=== PATIENT | male | born 1990 | race Two or more races ===

== ENCOUNTER → 2024-11-02 | Emergency (ER) | payer OTHER ==
[~2024-11-02] VITALS: Ht 193 cm; Wt 104.8 kg
[~2024-11-02] MED LIST: 0.9 % SODIUM CHLORIDE 1,000 ML IV ONE; FAMOTIDINE/PF 20 MG/2 ML VIAL ONE; FAMOtidine 10 MG/ML (4ML VIAL) IV ONE; MORPHINE SULFATE 4 MG/ML VIAL IV ONE; ONDANSETRON HCL 2 MG/ML VIAL IV ONE; ONDANSETRON HCL 2 MG/ML VIAL ONE; TERBUTALINE SULFATE 1 MG/ML AMPUL ONE; TERBUTALINE SULFATE 1 MG/ML AMPUL SUBCUTANEO ONE
[2024-11-02 14:31] LABS: HEMATOCRIT 46.6 % (39.0-48.0); MEAN CELL VOLUME 97.7 fL (80.0-100.00); MEAN CORPUSCULAR HGB CONC 34.4 g/dl (32.0-36.0); PLATELET COUNT 195 K/uL (150-450); RED BLOOD COUNT 4.77 M/uL (4.00-6.00); RED CELL DISTRIBUTION WIDTH 14.7 % (11.5-14.5)
[2024-11-02 14:47] LABS: INR 1.09; PARTIAL THROMBOPLASTIN TIME 24.2 SECONDS (22.0-34.0); PROTHROMBIN TIME 11.8 SECONDS (9.0-11.5)
[2024-11-02 14:50] LABS: BILIRUBIN TOTAL 0.81 mg/dL (0.3-1.2); CALCIUM 9.4 mg/dL (8.5-10.1); CREATININE SERUM 1.2 mg/dL (0.70-1.30); GFR 68.51; GLOBULINA 3.2 G/DL (2.4-3.5); POTASSIUM 4.03 mEq/L (3.5-5.1); TOTAL PROTEIN 7.2 gm/dL (6.4-8.2)
[2024-11-02 14:55] LABS: MEAN CORPUSCULAR HEMOGLOBIN 33.5 pg (27.00-32.0)
== END | disposition designated cancer center or children's hospital (05) ==
LOC: ER 13:05
PROVIDERS: General Practice
DX: N48.30 Priapism, unspecified (principal)
CPT/HCPCS: 36415; 96365; 96366; 99285; J2270; J2405; J3490; J7030